=== PATIENT | female | born 1935 | race Caucasian/White ===

== ENCOUNTER 2017-06-28 08:37 | Day surgery (SDC) | payer MEDICARE ==
--- NOTE | 2017-06-28 08:36 | HP ---
DATE OF SURGERY: 06/28/2017 HISTORY OF PRESENT ILLNESS: The patient is an 82 year-old with history of White's, last upper endoscopy six years ago. Some hoarseness, occasionally hard to swallow, a lot of heartburn, reflux. She also had some hard dark stools. She had some diarrhea couple weeks ago. No bright bloody stools. She is also in need of follow up screening colonoscopy as her last colonoscopy was eight years ago and she has a history of polyps. PAST MEDICAL HISTORY: She had a hole in her macula left eye according to the patient. She has a history of breast cancer in the past. She has inflammatory arthritis, spinal stenosis, chronic pain, history of anemia, White's esophagus, hypothyroidism, history of incontinence in the past. History of anxiety and depression. PAST SURGICAL HISTORY: Lumpectomy in the past for breast cancer. She had appendectomy and some finger surgery and hammer toes. She had some eye surgery, toe surgery. MEDICATIONS: Levothyroxine, oxybutynin, omeprazole, sulfasalazine, paroxetine, ferrous sulfate, lorazepam, hydrocodone acetaminophen, vitamin D3, folic acid, Voltaren gel, Aspercreme. Turmeric curcumin but she stopped that. ALLERGIES: NKDA. FAMILY HISTORY: Cancer, stroke. SOCIAL HISTORY: No smoking or alcohol abuse. REVIEW OF SYSTEMS: Twelve systems reviewed per admission assessment. No chest pain or palpitations other systems negative or noncontributory as above and per preadmission questionnaire. PHYSICAL EXAMINATION: GENERAL: A chronically ill female in no acute distress. HEENT: Sclerae nonicteric. NECK: No JVD. CHEST: Equal excursion, nonlabored breathing. CVS: Regular rate and rhythm. ABDOMEN: Soft. No peritoneal signs. EXTREMITIES: No significant edema. NEURO: Alert, moving extremities symmetrically. No gross motor deficits noted. IMPRESSION: History of White's with increased heartburn and reflux recently as well as some dark stools with last upper endoscopy six years ago, last colonoscopy years ago with polyps. She is in need of follow up screening colonoscopy as well as follow up upper endoscopy. Risks and benefits explained in detail including but not limited to bleeding or infection, risk of bowel injury or perforation possibly requiring open procedure, small risk of missed or nondiagnosis or incomplete exam possibly requiring barium enema, other studies or procedures, general risk of anesthesia or sedation, risk of bowel prep, postoperative risk of nausea or cramping but not limited to. She understands and agrees to the planned procedure and will proceed with EGD and colonoscopy as an outpatient.
[2017-06-28] MEDS ORDERED: DIPRIVAN 200 MG/20 ML IV ONE (08:38)
[2017-06-28] MEDS ORDERED: Lactated Ringers 1,000 ML IV SCH (09:00)
[2017-06-28 14:30] VITALS: BP 133/72; PULSE 121; O2SAT 96
--- NOTE | 2017-06-29 09:08 | OP ---
SURGERY DATE/TIME: 06/28/2017 1005 PREOPERATIVE DIAGNOSES: 1) History of White's esophagus, last endoscopy several years ago, need for follow up upper endoscopy. 2) History of polyps need for follow up screening colonoscopy, last endoscopy years ago. POSTOPERATIVE DIAGNOSES: 1) Minimal gastritis. 2) Plus or minus very slight weakness at the hiatus versus very slight hiatal hernia. 3) White's esophagus. 4) Diverticulosis. 5) Small internal and external hemorrhoids. 6) Poor bowel prep limiting the exam. 7) Small raised lesions versus early polyp transverse colon, sigmoid colon and rectosigmoid and rectum, some internal and external hemorrhoids. 8) Tortuous colon. SURGEON: Dr. Azael Quinn. ANESTHESIA: MAC. ESTIMATED BLOOD LOSS: Minimal. INDICATIONS: As noted above. Risks and benefits explained in detail and not limited to and consent obtained. PROCEDURES: 1) EGD with cold biopsy of the antrum to evaluate for Helicobacter pylori. The specimen was mishandled so ending up discarding. It was not worthwhile to send for path due to the minimum nature of the gastric inflammation. Otherwise multiple cold biopsies were taken of the esophagus of what appeared to be segment White's esophagus. 2) Colonoscopy. DESCRIPTION OF PROCEDURE AND FINDINGS: The gastroesophageal junction was about 35 cm. There did not appear to be any evidence of visible masses. No signs of any esophagitis or ulcerations just the White's changes at the esophagus with multiple biopsies in four quadrants up to this segment out to normal appearing esophagus. The scope is withdrawn. She had some tertiary contractions but no signs of any narrowed area that warranted dilatation. No signs of any masses or other mucosal lesions other than what appeared to be White's esophagus. The scope is withdrawn. The patient tolerated the procedure well. Good hemostasis noted. On retroflexion in the stomach she did have slight weakness of the hiatus whether this is a true sliding hiatal hernia versus just normal variation of gastroesophageal junction. There was no evidence of any large hiatal hernia on endoscopic view. The scope is withdrawn. The patient tolerated the procedure well. Attention is then turned to colonoscopy. Digital rectal exam did not reveal any rectal masses. She did have some internal and external hemorrhoids. Video colonoscope inserted and passed up the tortuous sigmoid, descending and transverse colon. Requiring positioning on her back a couple staff members holding pressure, the scope is slowly and carefully able to be passed around down the transverse colon, ascending colon and cecum. Appendiceal orifice and valve visualized. Prep overall was poor. It showed areas of liquidy semi-solid and solid stool limiting exam for small lesions this was suction irrigated as well as possible but did limit exam. The scope is slowly and carefully withdrawn. Transverse colon small raised lesion versus hyperplastic lesion removed with hot biopsy forceps this was also repeated in the sigmoid colon, rectosigmoid colon and rectum. She did have some diverticulosis back in the rectum. She did have a slightly larger raised lesion or early polyp that was able to be snared this was removed with brief bursts of cautery and hot snare this was about 3 to 5 mm in size and was sent off for pathology. Good hemostasis noted. The scope is withdrawn. The patient tolerated the procedure well. There were no immediate complications. Findings discussed with the family out in the waiting area. Again poor prep did limit the exam for small lesions. I will see her back in the office next week.
== END 2017-06-28 14:10 ==
LOC: SDC 08:37
PROVIDERS: ATTEND Surgery
PROC: 0DB38ZX Excision of Lower Esophagus, Via Natural or Artificial Opening Endoscopic, Diagnostic (ICD-10-PCS; principal; 2017-06-28)
PROC: 0DB78ZX Excision of Stomach, Pylorus, Via Natural or Artificial Opening Endoscopic, Diagnostic (ICD-10-PCS; 2017-06-28)
PROC: 0DBP8ZX Excision of Rectum, Via Natural or Artificial Opening Endoscopic, Diagnostic (ICD-10-PCS; 2017-06-28)
PROC: 0DBL8ZX Excision of Transverse Colon, Via Natural or Artificial Opening Endoscopic, Diagnostic (ICD-10-PCS; 2017-06-28)
PROC: 0DBN8ZX Excision of Sigmoid Colon, Via Natural or Artificial Opening Endoscopic, Diagnostic (ICD-10-PCS; 2017-06-28)
PROC: 0DBP8ZX Excision of Rectum, Via Natural or Artificial Opening Endoscopic, Diagnostic (ICD-10-PCS; 2017-06-28)
DX: K29.70 Gastritis, unspecified, without bleeding (principal); K44.9 Diaphragmatic hernia without obstruction or gangrene; K22.70 Barrett's esophagus without dysplasia; Z12.11 Encounter for screening for malignant neoplasm of colon; Z86.010 Personal history of colon polyps; K57.90 Diverticulosis of intestine, part unspecified, without perforation or abscess without bleeding; K64.4 Residual hemorrhoidal skin tags; K64.8 Other hemorrhoids; K63.9 Disease of intestine, unspecified; Q43.8 Other specified congenital malformations of intestine
CPT/HCPCS: 00813; 82962; 88305; 93005; 99100; J2704

== ENCOUNTER 2017-06-28 14:13 | Observation (INO) | payer MEDICARE ==
--- NOTE | 2017-06-28 14:42 | XRAY ---
Indication: Atrial fibrillation. Comparison: None Portable chest demonstrates normal heart and lungs with multiple overlying monitoring leads. Bony thorax intact. Impression: Nonacute chest.
[2017-06-28] MEDS: Magnesium 1 Gm / 100 Ml D5W*** 100 ML IV SCH ×2 (15:02→19:19)
[2017-06-28 15:07] LABS: BASOPHIL % 0.2 % (0.0-0.4); Basophil (Absolute #) 0.01 (0-0.4); Eosinophil % 2.5 % (0.00-5.0); Eosinophil (Absolute #) 0.12 (0-0.5); Granulocyte Absolute (ANC) 2.74 (1.4-6.9); Granulocytes % 56.7 % (36.0-66.0); Hematocrit 40.9 % (35-47); Hemoglobin 12.6 gm/dl (12.0-16.0); Lymphocyte (Absolute #) 1.36 (1.0-4.6); Lymphocytes % 28.2 % (24.0-44.0); Mean Cell Volume 93.6 fl (78-100); Mean Corpuscular Hemoglobin 28.8 pg (26-32); Mean Corpuscular Hgb Concent. 30.8 g/dl (32-36); Mean Platelet Volume 10.6 fl (6-9.5); Monocytes % 12.4 % (0.0-12.0); Platelet Count 210 K/mm3 (150-450); Red Blood Count 4.37 M/mm3 (4.1-5.4); Red Cell Distribution Width 15.7 % (11.5-14.0); White Blood Count 4.8 K/mm3 (4.0-10.5)
--- NOTE | 2017-06-28 15:14 | ERPHSYRPT ---
- History of Present Illness Time Seen by Provider: 06/28/17 14:28 Source: patient, other (OP surgery staff) Patient Subjective Stated Complaint: new onset afib Triage Nursing Assessment: pt to er from outpatient surgery, had egd and colonoscopy this date and during discharge had new onset afib, denies pain denies dysnpea Physician History: CC: atrial fibrillation Hx: 82 y/o patient of [employer] Lo. She had EGD and colonoscopy this AM per Dr Romero. She recovered fine. Drank a milkshake. Was up to BR. When back to bed prior to going home they noted Afib with some RVR. She has no symptoms. No hx of this in the past. No chest pain. She had biopsies so is not supposed to have asa or blood thinners. The doctors were called and she was sent to ER. She had normal colonoscopy prep. Timing/Duration: today Severity: moderate Allergies/Adverse Reactions: No Known Drug Allergies Allergy (Verified 06/28/17 14:29) Home Medications: Cholecalciferol (Vitamin D3) [Vitamin D] 1 tab PO DAILY 06/22/17 [History] Ferrous Sulfate 325 mg [Feosol 325 mg] 1 tab PO BID PRN 06/22/17 [History] Folic Acid/Vit B Complex and C [Balanced B-Complex Caplet] 1 tab PO DAILY [History] Hydrocodone/Acetaminophen [Hydrocodone-Acetamin 5-325 mg] 1 tab PO TIDPRN PRN [History] Levothyroxine Sodium 50 Mcg [Synthroid 50 Mcg] 1 tab PO DAILY 06/22/17 [ History] Lorazepam 1 mg [Ativan 1 MG] 1 tab PO BID 06/22/17 [History] Omeprazole 1 tab PO EVENING MEAL 06/22/17 [History] Oxybutynin Chloride Xl 5 mg [Ditropan XL 5 MG] 1 tab PO BID 06/22/17 [ History] Paroxetine HCl [Paxil] 1 tab PO DAILY 06/22/17 [History] Turm/Ging/Michael/Yuc/Surjit/Avani/Hor [Tumersaid Tablet] 06/28/17 [History] Hx Tetanus, Diphtheria Vaccination/Date Given: No Hx Influenza Vaccination/Date Given: Yes Hx Pneumococcal Vaccination/Date Given: Yes - Review of Systems Constitutional: No Fever, No Chills, No Weakness Eyes: No Symptoms Ears, Nose, & Throat: No Symptoms Respiratory: No Cough, No Dyspnea Cardiac: No Chest Pain, No Palpitations, No Syncope Abdominal/Gastrointestinal: No Abdominal Pain, No Vomiting Skin: No Rash Neurological: No Dizziness, No Focal Weakness, No Headache, No Parasthesia All Other Systems: Reviewed and Negative - Past Medical History Pertinent Past Medical History: Yes Neurological History: Migraines ENT History: Cataracts Cardiac History: No Pertinent History Respiratory History: No Pertinent History Endocrine Medical History: Hypothyroidism Musculoskeletal History: Other GI Medical History: Diverticulosis History: No Pertinent History Psycho-Social History: Anxiety, Depression Female Reproductive Disorders: No Pertinent History Other Medical History: osteopenia, inflammatory arthritis - Past Surgical History Past Surgical History: Yes Neuro Surgical History: No Pertinent History Cardiac: No Pertinent History Respiratory: No Pertinent History Gastrointestinal: Appendectomy, Other Genitourinary: No Pertinent History Musculoskeletal: Orthopedic Surgery Female Surgical History: Lumpectomy Other Surgical History: 2 colonoscopy, 1 egd, lumpectomy 1993, app, surgery on fingers and toes for arthritis complications, L macula hole repaired - Social History Smoking Status: Former smoker Exposure to second hand smoke: No Drug Use: none Patient Lives Alone: No - Female History Hx Now: No - Nursing Vital Signs Nursing Vital Signs: Initial Vital Signs Temperature 97.9 F 06/28/17 14:16 Pulse Rate 132 H 06/28/17 14:16 Respiratory Rate 20 06/28/17 14:16 Blood Pressure 152/81 06/28/17 14:16 O2 Sat by Pulse Oximetry 95 06/28/17 14:16 Pain Scale Pain Intensity 0 - Physical Exam General Appearance: alert, other (pleasant lady) Eye Exam: PERRL/EOMI Ears, Nose, Throat Exam: normal ENT inspection, dry mucous membranes Neck Exam: normal inspection, non-tender, supple Respiratory Exam: normal breath sounds, lungs clear Cardiovascular Exam: tachycardia, irregular, No murmur Gastrointestinal/Abdomen Exam: soft, No tenderness, No distention Extremity Exam: normal inspection, normal range of motion, No calf tenderness, No pedal edema Neurologic Exam: alert, oriented x 3, cooperative, sensation nml, No motor deficits Skin Exam: warm, dry, No rash SpO2 Interpretation: normal SpO2: 94 Oxygen Delivery: Room Air - Course Nursing assessment & vital signs reviewed: Yes EKG Interpreted by Me: RATE (117), A-fib (with RVR), Left [place] Deviation, NORMAL INTERVALS (QTc 469), Non-specific ST Changes - Radiology Exams cxr X-ray Interpretation: Teleradiologist Report, Negative Ordered Tests: Active Orders 24 hr Category Date Time Status Bonded Strand Operator STAT Care 06/28/17 14:29 Active EKG-ER Only STAT Care 06/28/17 16:17 Active IV Insertion STAT Care 06/28/17 14:28 Active Pulse Oximetry (ED) STAT Care 06/28/17 14:28 Active CHEST 1 VIEW (PORTABLE) Stat Exams 06/28/17 14:28 Completed CBC W DIFF Stat Lab 06/28/17 14:54 Completed CMP Stat Lab 06/28/17 14:54 Completed MAGNESIUM Stat Lab 06/28/17 14:54 Completed TROPONIN Q3H Lab 06/28/17 14:54 Completed TROPONIN Q3H Lab 06/28/17 17:30 Ordered TROPONIN Q3H Lab 06/28/17 20:30 Ordered TROPONIN Q3H Lab 06/28/17 23:30 Ordered TROPONIN Q3H Lab 06/29/17 02:30 Ordered TSH [TSH, 3RD Generation] Stat Lab 06/28/17 Received Medication Summary Generic Name Dose Route Start Last Admin Trade Name Freq PRN Reason Stop Dose Admin Magnesium Sulfate/Dextrose 100 mls @ 100 mls/hr 06/28/17 14:30 06/28/17 15:02 Magnesium 1 Gm / 100 Ml D5w IV 06/28/17 16:29 100 mls/hr Q1H JEN Administration Lab/Rad Data: Laboratory Result Diagrams 06/28/17 14:54 06/28/17 14:54 Laboratory Results 06/28/17 06/28/17 06/28/17 Range/Units 14:54 14:54 14:54 WBC (4.0-10.5) K/mm3 RBC (4.1-5.4) M/mm3 Hgb (12.0-16.0) gm/dl Hct (35-47) % MCV (78-100) fl MCH (26-32) pg MCHC (32-36) g/dl RDW (11.5-14.0) % Plt Count (150-450) K/mm3 MPV (6-9.5) fl Gran % (36.0-66.0) % Lymphocytes % (24.0-44.0) % Monocytes % (0.0-12.0) % Eosinophils % (0.00-5.0) % Basophils % (0.0-0.4) % Basophils # (0-0.4) Sodium 145 (137-145) mmol/L Potassium 3.8 (3.5-5.1) mmol/L Chloride 106 (98-107) mEq/L Carbon Dioxide 26 (22-30) mmol/L Anion Gap 16.9 MEQ/L BUN 10 (7-17) mg/dL Creatinine 0.59 (0.52-1.04) mg/dl Estimated GFR > 60 ML/MIN Glucose 130 H (74-106) mg/dL Calcium 10.2 (8.4-10.2) mg/dL Magnesium 2.3 (1.6-2.3) mg/dL Total Bilirubin 0.50 (0.2-1.3) mg/dL AST 47 H (14-36) U/L ALT 20 (0-35) U/L Alkaline Phosphatase 57 (38-126) U/L Troponin I < 0.012 (0.000-0.034) ng/mL Serum Total Protein 7.7 (6.3-8.2) mg/dL Albumin 4.5 (3.5-5.0) g/dL 06/28/17 Range/Units 14:54 WBC 4.8 (4.0-10.5) K/mm3 RBC 4.37 (4.1-5.4) M/mm3 Hgb 12.6 (12.0-16.0) gm/dl Hct 40.9 (35-47) % MCV 93.6 (78-100) fl MCH 28.8 (26-32) pg MCHC 30.8 L (32-36) g/dl RDW 15.7 H (11.5-14.0) % Plt Count 210 (150-450) K/mm3 MPV 10.6 H (6-9.5) fl Gran % 56.7 (36.0-66.0) % Lymphocytes % 28.2 (24.0-44.0) % Monocytes % 12.4 H (0.0-12.0) % Eosinophils % 2.5 (0.00-5.0) % Basophils % 0.2 (0.0-0.4) % Basophils # 0.01 (0-0.4) Sodium (137-145) mmol/L Potassium (3.5-5.1) mmol/L Chloride (98-107) mEq/L Carbon Dioxide (22-30) mmol/L Anion Gap MEQ/L BUN (7-17) mg/dL Creatinine (0.52-1.04) mg/dl Estimated GFR ML/MIN Glucose (74-106) mg/dL Calcium (8.4-10.2) mg/dL Magnesium (1.6-2.3) mg/dL Total Bilirubin (0.2-1.3) mg/dL AST (14-36) U/L ALT (0-35) U/L Alkaline Phosphatase (38-126) U/L Troponin I (0.000-0.034) ng/mL Serum Total Protein (6.3-8.2) mg/dL Albumin (3.5-5.0) g/dL - Progress Progress Note: 06/28/17 15:15 Will give mag sulfate and await labs. 06/28/17 17:08 Repeat EKG converted to NSR with 1st degree AV block. She feels better. Converted after [address] Maryellen Mo (oc) who will place in tele obs. Discussed with : Aureliano Will see patient in: hospital (observation) Counseled pt/family regarding: lab results, diagnosis, need for follow-up, rad results - Departure Time of Disposition: 17:09 Departure Disposition: Observation (Tele) Clinical Impression: Atrial fibrillation with RVR, Status post endoscopy Condition: Fair Critical Care Time: No Referrals: ISAAC LO NP [Primary Care Provider] -
[2017-06-28 15:51] LABS: ALBUMIN 4.5 g/dL (3.5-5.0); ALKALINE PHOSPHATASE 57 U/L (38-126); ANION GAP 16.9 MEQ/L; BLOOD UREA NITROGEN 10 mg/dL (7-17); CHLORIDE 106 mEq/L (98-107); Calcium 10.2 mg/dL (8.4-10.2); Carbon Dioxide 26 mmol/L (22-30); Creatinine 1 0.59 mg/dl (0.52-1.04); Glucose 130 mg/dL (74-106); Potassium 3.8 mmol/L (3.5-5.1); SGOT/AST 47 U/L (14-36); SGPT/ALT 20 U/L (0-35); SODIUM 145 mmol/L (137-145); Total Protein 7.7 mg/dL (6.3-8.2)
[2017-06-28] MEDS ORDERED: TYLENOL 325 MG PO PRN (17:42)
[2017-06-28] MEDS ORDERED: Magnesium 1 Gm / 100 Ml D5W*** 100 ML IV ONE (19:15)
[2017-06-28] MEDS ORDERED: NORCO 5/325 MG PO PRN (19:54)
[2017-06-28] MEDS: Ditropan XL 5 MG PO SCH (21:11)
[2017-06-28] MEDS: FEOSOL 325 MG PO SCH (21:12)
[2017-06-28] MEDS ORDERED: Ativan 1 MG PO SCH (22:00)
[2017-06-28] MEDS ORDERED: AZULFIDINE 500 MG PO SCH (22:00)
--- NOTE | 2017-06-29 08:42 | PCM.HP ---
History of Present Illness - Chief Complaint Chief Complaint: atrial fibrillation with RVR Date: 06/29/17 History of Present Illness: is a 82 year old female. who was post op after having an egd and colonoscopy with Dr. Quinn yesterday when she got up to go to the restroom and returned and was in afib with rvr. She wasn't having any severe symptoms with it no chest pain and no shortness of breath she felt well otherwise. Post op sent her to the ED due to no local Dr. and the first EKG showed afib c rvr at rate of 120 but after hooking up telemetry she spontaneously converted to sinus rhythm she was in afib for a very short duration of time and she has been asymptomatic all night. She was admitted for rule out and observation. Dr. Quinn did not want her to have anticoagulation due the biopsies he had just taken. - Review of Systems Constitutional: No Fever, No Chills Eyes: No Symptoms Ears, Nose, & Throat: No Symptoms Respiratory: No Cough, No Short Of Breath Cardiac: No Chest Pain, No Edema, No Syncope Abdominal/Gastrointestinal: No Abdominal Pain, No Nausea, No Vomiting, No Diarrhea Genitourinary Symptoms: No Dysuria Musculoskeletal: No Back Pain, No Neck Pain Skin: No Rash Neurological: No Dizziness, No Focal Weakness, No Sensory Changes Psychological: No Symptoms Endocrine: No Symptoms Hematologic/Lymphatic: No Symptoms Immunological/Allergic: No Symptoms Medications & Allergies Home Medications: Home Medication List Cholecalciferol (Vitamin D3) [Vitamin D] 1 tab PO DAILY 06/22/17 [History Confirmed 06/28/17] Ferrous Sulfate 325 mg [Feosol 325 mg] 1 tab PO BID 06/22/17 [History Confirmed 06/28/17] Folic Acid/Vit B Complex and C [Balanced B-Complex Caplet] 1 tab PO DAILY [History Confirmed 06/28/17] Hydrocodone/Acetaminophen [Hydrocodone-Acetamin 5-325 mg] 1 tab PO TIDPRN PRN [History Confirmed 06/28/17] Levothyroxine Sodium 50 Mcg [Synthroid 50 Mcg] 1 tab PO DAILY 06/22/17 [ History Confirmed 06/28/17] Lorazepam 1 mg [Ativan 1 MG] 1 tab PO BID 06/22/17 [History Confirmed 09/10] Omeprazole 1 tab PO EVENING MEAL 06/22/17 [History Confirmed 06/28/17] Oxybutynin Chloride Xl 5 mg [Ditropan XL 5 MG] 1 tab PO BID 06/22/17 [ History Confirmed 06/28/17] Paroxetine HCl [Paxil] 1 tab PO DAILY 06/22/17 [History Confirmed 06/28/17] Sulfasalazine 500 mg [Azulfidine 500 mg] 1,000 mg PO BID 06/28/17 [ History Confirmed 06/28/17] Turm/Ging/Michael/Yuc/Surjit/Avani/Hor [Tumersaid Tablet] 1 tablet PO TID 06/28/17 [ History Confirmed 06/28/17] Allergies/Adverse Reactions: Allergies Allergy/AdvReac Type Severity Reaction Status Date / Time No Known Drug Allergies Allergy Verified 06/28/17 14:29 - Past Medical History Past Medical History: Yes Neurological History: Migraines ENT History: Cataracts Cardiac History: No Pertinent History Respiratory History: No Pertinent History Endocrine Medical History: Hypothyroidism Musculoskelatal History: Other GI Medical History: Diverticulosis History: No Pertinent History Pyscho-Social History: Anxiety, Depression Reproductive Disorders: No Pertinent History Comment: osteopenia, inflammatory arthritis - Female History Are you now?: No - Past Surgical History Past Surgical History: Yes Neuro Surgical History: No Pertinent History Cardiac History: No Pertinent History Respiratory Surgery: No Pertinent History GI Surgical History: Appendectomy, Other Genitourinary Surgical Hx: No Pertinent History Musculskeletal Surgical Hx: Orthopedic Surgery Female Surgical History: Lumpectomy Other Surgical History: 2 colonoscopy, 1 egd, lumpectomy 1993, appy, surgery on fingers and toes for arthritis complications, L macula hole repaired - Social History Smoking Status: Former smoker Exposure to second hand smoke: No Alcohol: None Drug Use: none - Physical Exam Vital Signs: Vital Signs - 24 hr Temp Pulse Resp BP Pulse Ox 06/29/17 07:53 98 F 75 18 152/71 95 06/29/17 04:00 98.4 F 81 16 149/66 93 L 06/29/17 00:00 98.3 F 71 20 148/65 95 06/28/17 17:48 97.9 F 79 18 169/67 98 06/28/17 17:42 97.9 F 79 18 169/67 98 06/28/17 17:09 94 L 06/28/17 16:50 91 H 18 163/87 91 L 06/28/17 16:01 96 H 20 100/63 06/28/17 15:05 107 H 16 141/88 94 L 06/28/17 14:39 95 06/28/17 14:16 97.9 F 132 H 20 152/81 95 General Appearance: no apparent distress, alert, thin Neurologic Exam: alert, oriented x 3, cooperative, normal mood/affect, nml cerebellar function, nml station & gait, sensation nml, No motor deficits Eye Exam: PERRL/EOMI, eyes nml inspection Ears, Nose, Throat Exam: normal ENT inspection, pharynx normal, moist mucous membranes Neck Exam: normal inspection, non-tender, supple, full range of motion Respiratory Exam: normal breath sounds, lungs clear, No respiratory distress Cardiovascular Exam: regular rate/rhythm, normal heart sounds, normal peripheral pulses Gastrointestinal/Abdomen Exam: soft, normal bowel sounds, No tenderness, No mass Back Exam: normal inspection, normal range of motion, No CVA tenderness, No vertebral tenderness Extremity Exam: normal inspection, normal range of motion, pelvis stable Skin Exam: normal color, warm, dry, No rash Lymphatic Exam: No adenopathy Results - Labs Lab/Micro Results: Lab Results-Last 24 Hours 06/28/17 06/28/17 06/28/17 Range/Units 17:59 20:38 23:40 Magnesium (1.6-2.3) mg/dl Troponin I < 0.012 < 0.012 < 0.012 (0.000-0.034) ng/ml TSH 3rd Generation (0.47-4.68) mIU/L 06/28/17 06/29/17 06/29/17 Range/Units Unknown 02:37 03:00 Magnesium 2.9 H (1.6-2.3) mg/dl Troponin I < 0.012 (0.000-0.034) ng/ml TSH 3rd Generation 2.640 (0.47-4.68) mIU/L Assessment/Plan (1) Atrial fibrillation with RVR Status: Acute Assessment & Plan: had a very short duration of atrial fibrillation immediately post op that spontaneously converted to sinus rhythm and has persisted overnight with frequent pac's and a few episodes of sinus arrythmia with preserved p waves but no documented episodes of atrial fibrillation since the initial event. She had seriel troponins that are negative. she was not anticoagulated due to her biopsies just prior to this happening at surgeries request she had no bleeding noted. we discussed options and recommend outpatient heart monitoring we are getting an echocardiogram today and will have her follow up with her family nurse practitioner in [facility] as well as set up cardiology follow up to follow up echo results and ambulatory cardiac monitoring for occult atrial fibrillation. She and her daughter expressed understanding. Code(s): I48.91 - UNSPECIFIED ATRIAL FIBRILLATION (2) Status post endoscopy Status: Acute Code(s): Z98.890 - OTHER SPECIFIED POSTPROCEDURAL STATES
--- NOTE | 2017-06-29 08:44 | PCM.DCORD ---
- Discharge Discharge Date: 06/29/17 Disposition: Home, Self-Care Condition: Stable Prescriptions: Continue Hydrocodone/Acetaminophen [Hydrocodone-Acetamin 5-325 mg] 1 tab PO TIDPRN PRN PRN Reason: Pain Lorazepam 1 mg [Ativan 1 MG] 1 tab PO BID Ferrous Sulfate 325 mg [Feosol 325 mg] 1 tab PO BID Paroxetine HCl [Paxil] 1 tab PO DAILY Omeprazole 1 tab PO EVENING MEAL Oxybutynin Chloride Xl 5 mg [Ditropan XL 5 MG] 1 tab PO BID Levothyroxine Sodium 50 Mcg [Synthroid 50 Mcg] 1 tab PO DAILY Folic Acid/Vit B Complex and C [Balanced B-Complex Caplet] 1 tab PO DAILY Cholecalciferol (Vitamin D3) [Vitamin D] 1 tab PO DAILY Turm/Ging/Michael/Yuc/Surjit/Avani/Hor [Tumersaid Tablet] 1 tablet PO TID Sulfasalazine 500 mg [Azulfidine 500 mg] 1,000 mg PO BID Additional Instructions: ok to d/c with follow up with cardiology in [facility] after she has echo done this morning Follow up with: ISAAC LIMA NP [Primary Care Provider] - 1 Week TOÑA KONG [NON-STAFF PHY W/O PRIVILEGES] - 1 Week
[2017-06-29] MEDS ORDERED: PAROXETINE HCL PO SCH (10:00)
[2017-06-29] MEDS ORDERED: AZULFIDINE 500 MG PO SCH (10:00)
[2017-06-29] MEDS ORDERED: Paxil 20 MG PO SCH (10:00)
[2017-06-29] MEDS ORDERED: VITAMIN D PO SCH (10:00)
[2017-06-29] MEDS ORDERED: VIT B COMPLEX AND C PO SCH (10:00)
[2017-06-29] MEDS ORDERED: FOLIC ACID PO SCH (10:00)
[2017-06-29] MEDS ORDERED: Ativan 1 MG PO SCH (10:00)
[2017-06-29] MEDS ORDERED: SYNTHROID 50 MCG PO SCH (10:00)
[2017-06-29] MEDS ORDERED: VITA-BEE WITH C PO SCH (10:00)
[2017-06-29] MEDS: FEOSOL 325 MG PO SCH (10:41)
[2017-06-29] MEDS: Ditropan XL 5 MG PO SCH (10:41)
[2017-06-29 11:30] VITALS: BP 148/75; PULSE 71; O2SAT 96
[2017-06-29] MEDS ORDERED: Protonix 40MG Tablet PO SCH (18:00)
[2017-06-29] MEDS ORDERED: NON-FORMULARY ITEM (Omeprazole [Omeprazole] 1 TAB) PO SCH (18:00)
--- NOTE | 2017-07-02 08:34 | ECHO ---
AMENDED REPORT: DATE OF PROCEDURE: 06/29/2017 CLINICAL INFORMATION: Atrial fibrillation. The M-mode 2D, and Doppler echocardiogram including color flow Doppler shows normal contractility of the left ventricle with an ejection fraction between 53 and 60%. The left ventricle is normal in size with a dimension of 4.1 cm. The septal wall thickness is normal at 0.9 cm. The left ventricular posterior wall thickness is increased at 1.3 cm. The right ventricle was grossly normal in size and function. The left atrium is dilated at 4.4 cm. The interatrial septum is intact. The right atrium is normal in size. The aortic valve opens well and is trileaflet. There is mild aortic regurgitation. There is mild to moderate mitral regurgitation present. There is mild to moderate tricuspid regurgitation. There is moderate pulmonary hypertension with a right ventricular systolic pressure of 43 mm of [place]. The pulmonic valve is not well visualized. The interatrial septum is intact. The mitral valve E to A inflow velocity ratio is decreased at 0.9 consistent with impaired left ventricular relaxation. There is no pericardial effusion present. IMPRESSION: 1) NORMAL CONTRACTILITY OF THE LEFT VENTRICLE. 2) MILDLY DILATED LEFT ATRIUM. 3) MILD TO MODERATE MITRAL REGURGITATION. 4) MILD AORTIC REGURGITATION. 5) MILD TO MODERATE TRICUSPID REGURGITATION. 6) MODERATE PULMONARY HYPERTENSION. 7) EVIDENCE OF IMPAIRED LEFT VENTRICULAR RELAXATION.
== END 2017-06-29 16:00 | disposition home or self-care (01) ==
LOC: ED 14:13 → MED SURG 17:39
PROVIDERS: ADMIT Family Medicine; ATTEND Family Medicine
DX: I48.91 Unspecified atrial fibrillation (principal); Z98.890 Other specified postprocedural states
CPT/HCPCS: 36000; 36415; 71045; 80053; 82962; 83735; 84443; 84484; 85025; 88305; 93005; 93041; 93268; 93306; 99100; 99285; G0378; J2704; J3475; A9270-GY

== ENCOUNTER 2022-02-09 10:24 | Day surgery (SDC) | payer MEDICARE ==
--- NOTE | 2022-02-09 08:18 | HP ---
DATE OF SURGERY: 02/09/2022 HISTORY OF PRESENT ILLNESS: The patient is an 87-year-old with prior bronchoscopy, has history of lung cancer and on home oxygen two years. No blood thinners. History of pneumonia four times. History of some nodules. She is being followed by Dr. Gomez. History of breast cancer and lumpectomy in the past. Hypertension, history of atrial fibrillation, anxiety in the past. Dr. Gomez has requested bronchoscopy for further evaluation. PAST MEDICAL HISTORY: Hypothyroidism. Chronic lung disease. History of breast cancer. Hypertension. Arthritis. PAST SURGICAL HISTORY: Lumpectomy on the left. Hand surgery. Foot surgery bilaterally. Colonoscopy in the past. MEDICATIONS: Amlodipine, paroxetine, ferrous sulfate, folic acid, multivitamin, metoprolol, Combivent, omeprazole, Ventolin HFA, levothyroxine, fexofenadine. ALLERGIES: SULFASALAZINE (RASH). LATEX. FAMILY HISTORY: Negative in regards to this problem. SOCIAL HISTORY: Former smoker, smoked half pack per day and quit back in 2006. No alcohol abuse. REVIEW OF SYSTEMS: Fourteen systems reviewed, multiple chronic illnesses. PHYSICAL EXAMINATION: GENERAL: A chronically ill female in no acute distress. HEENT: Sclerae nonicteric. NECK: No JVD. CHEST: Equal excursion. CVS: Regular rhythm and pulse. ABDOMEN: Soft. EXTREMITIES: No cyanosis. NEURO: Alert. PSYCH: Appropriate mood and affect. LAB DATA AND TESTS: The patient had some groundglass appearing in the lower and upper lobe, mucous present there, mass-like consolidation left lingula left upper lobe, increased bronchiectasis. IMPRESSION: The patient had been discussed options of CT-assisted guided biopsy or fiberoptic bronchoscopy biopsy by Dr. Gomez. She agreed to go ahead and proceed with bronchoscopy for further evaluation at this time. Will proceed with flexible fiberoptic bronchoscopy with bronchoalveolar lavage and washing, possible biopsy as an outpatient. General risk of bleeding or infection, risk of progression of the disease, risk of pneumonia, remote risk of pneumothorax, risk of missed or nondiagnosis, risk of cardiopulmonary event given her comorbidities, consent was obtained. Will proceed with outpatient fiberoptic bronchoscopy with bronchoalveolar lavage, possible washing and possible biopsy as an outpatient. The patient was originally scheduled at [facility] but they did not have the equipment available to do bronchoscopy so she then chose [facility].
[2022-02-09] MEDS ORDERED: Lactated Ringers 1,000 ML IV SCH (11:30)
[2022-02-09] MEDS ORDERED: BREVIBLOC 100 MG/10 ML IV ONE (12:43)
[2022-02-09] MEDS ORDERED: Zofran 4 MG/2 ML VIAL ONE (12:43)
[2022-02-09] MEDS ORDERED: Quelicin Fliptop 200 MG/10 ML ONE (12:43)
[2022-02-09] MEDS ORDERED: Decadron 4 MG INJ ONE (12:43)
[2022-02-09] MEDS ORDERED: Zemuron 100 MG/10 ML ONE (12:45)
[2022-02-09] MEDS ORDERED: Amidate 20 MG/10 ML IV ONE (12:47)
[2022-02-09] MEDS ORDERED: Pre-Attached Lta Kit TP ONE (12:52)
[2022-02-09] MEDS ORDERED: SUBLIMAZE 100 MCG/2 ML ONE (12:53)
[2022-02-09] MEDS ORDERED: Xopenex 1.25 MG/0.5 ML UD NEBULE IH ONE ×2 (14:05→14:44)
[2022-02-09] MEDS ORDERED: Sodium Chloride 3 ML UD NEBULES IH ONE (14:06)
--- NOTE | 2022-02-09 14:06 | XRAY ---
Indication: Bronchoscopy with right lung compression. Intraoperative fluoroscopy provided for 1 second. 2 digital spot images submitted for interpretation demonstrates bronchoscopy with wire in the right upper lobe. Correlate with intraoperative findings/report.
--- NOTE | 2022-02-09 14:31 | XRAY ---
Indication: Status post bronchoscopy. Comparison: July 08, 2017 Portable chest less inflated with stable medial right base calcified granuloma. No focal infiltrate, consolidation, large effusion, or pneumothorax. Heart not enlarged. Bony thorax intact again with osteopenia and degenerative changes. Impression: Continued nonacute chest with chronic features.
--- NOTE | 2022-02-09 14:56 | OP ---
SURGERY DATE/TIME: 02/09/2022 1306 PREOPERATIVE DIAGNOSIS: History of abnormal CT scan with some worsening groundglass opacity right upper and right lower lobe, especially in right lower lobe, stable consolidation left upper lobe lingula. Need for bronchoscopy and bronchoalveolar washings. POSTOPERATIVE DIAGNOSIS: No visible intraluminal masses, mucous, bilateral bronchial trees, right upper lobe and lower lobe greater than left, some bronchial spasm and bronchiectasis. PROCEDURES: 1) Flexible fiberoptic bronchoscopy with some spot C-arm fluoroscopy film. 2) Bronchoalveolar washings left upper lobe and lingula. 3) Bronchoalveolar washing and brushing right lower lobe. 4) Bronchoalveolar washing and brushing upper lobe and middle lobe to be sent for Acid-Fast Bacilli (AFB), culture, fungus and cytology. SURGEON: Dr. Azael Quinn. ANESTHESIA: General. ESTIMATED BLOOD LOSS: Minimal. INDICATIONS: As noted above. Risks and benefits explained in detail and not limited to and consent obtained. DESCRIPTION OF PROCEDURE AND FINDINGS: The patient is taken to the operating room. General anesthesia induced. After official time out and no disagreement with planned procedure, fiberoptic bronchoscope passed down. [place] was unremarkable looking. In the left lower lobe, left upper lobe and lingula, there was some mucous some minimal erythema. No signs of any endoluminal bronchial masses. Marked alveolar washings were taken in left lower lobe lingula and upper lobe to be sent for Acid-Fast Bacilli, culture, fungal stain and cytology. The scope was then pulled back and then passed down the right lower lobe. Again, there was more mucous on this side. No gretchen plugging currently today but definite increase in mucous lower lobe. Bronchoalveolar washing on the right lower lobe segmental bronchi was accomplished with the aid of some brushing for cytology. There were no signs of any endobronchial mass or lesions, just slight erythema. Scope was pulled back and then up the middle lobe and right upper lobe brushing also done, bronchoalveolar washing and spot C-arm fluoroscopy to confirm the area definitely on the right side. Bronchoalveolar lavage washings were taken for Acid-Fast Bacilli, culture, fungus and cytology. The scope is withdrawn. She did have good hemostasis. There were no immediate complications. I will see if she has family out in the waiting area to discuss the findings with.
[2022-02-09 15:22] VITALS: BP 137/73; PULSE 72; O2SAT 98
--- NOTE | 2022-02-09 16:47 | XRAY ---
1 second fluoroscopy time in surgery for bronchoscopy.
== END 2022-02-09 15:50 | disposition home or self-care (01) ==
LOC: SDC 10:24
PROVIDERS: ATTEND Surgery
DX: J47.9 Bronchiectasis, uncomplicated (principal); J98.01 Acute bronchospasm; R91.8 Other nonspecific abnormal finding of lung field; Z85.118 Personal history of other malignant neoplasm of bronchus and lung; Z85.3 Personal history of malignant neoplasm of breast; Z99.81 Dependence on supplemental oxygen
CPT/HCPCS: 36415; 71045; 76000; 87046; 87070; 87116; 87206; 88104; 88112; 94640; J0330; J1100; J2405; J3010; A9270-GY